=== PATIENT | female | born 1985 | race Caucasian/White ===

== ENCOUNTER 2016-07-27 11:50 | Emergency (ER) | payer MEDICAID ==
[2016-07-27 12:09] VITALS: BP 126/77; RESP 16; TEMP 98; O2SAT 98
--- NOTE | 2016-07-27 12:28 | ED PDOC ---
HPI: Wound Care - HPI Time Seen by Provider: 07/27/16 12:25 Chief Complaint (Nursing): Wound Check Chief Complaint (Provider): wound care History Per: Patient Exam Limitations: no limitations Additional Complaint(s): 30yo F in Ed for eval of left thigh wound sustained 1 week ago via dog bite- with superfical abrasion. pt not given abx. pt state she developed fever last week and now with swelling and pain with redness to injured site. no vomiting no drainage no numbness to LE. Past Medical History Reviewed: Historical Data, Nursing Documentation, Vital Signs Vital Signs: Last Vital Signs Temp 98 F 07/27/16 12:06 Pulse 96 H 07/27/16 12:06 Resp 16 07/27/16 12:06 BP 126/77 07/27/16 12:06 Pulse Ox 98 07/27/16 12:06 - Medical History PMH: No Chronic Diseases - Family History Family History: States: No Known Family Hx - Home Medications Home Medications: Ambulatory Orders Medication Instructions Recorded Ferrous Sulfate [Feosol] 1 tab PO DAILY 07/19/16 Ibuprofen [Motrin] 600 mg PO Q6 #20 tab 07/19/16 Amoxicillin/Clavulanate [Augmentin 1 tab PO BID #14 tab 07/27/16 875 MG-125 MG] - Allergies Allergies/Adverse Reactions: Allergies Allergy/AdvReac Type Severity Reaction Status Date / Time No Known Allergies Allergy Verified 07/27/16 12:22 Review of Systems ROS Statement: Except As Marked, All Systems Reviewed And Found Negative Skin: Positive for: Lesions Physical Exam - Reviewed Nursing Documentation Reviewed: Yes Vital Signs Reviewed: Yes - Physical Exam Appears: Positive for: Well, Non-toxic, No Acute Distress Head Exam: Positive for: ATRAUMATIC, NORMAL INSPECTION, NORMOCEPHALIC Skin: Positive for: Normal Color, Warm, DRY Cardiovascular/Chest: Positive for: Regular Rate, Rhythm Respiratory: Positive for: CNT, Normal Breath Sounds Extremity: Positive for: Normal ROM, Other (left lateral thig mid-1x2 round lesion tender nodule with redness no strekaing. no surronding swelling. ). Negative for: Deformity Neurologic/Psych: Positive for: Alert, Oriented - ECG O2 Sat by Pulse Oximetry: 98 Medical Decision Making Medical Decision Making: pt will require abx, advised to continue warm compress and if worsened with fever or lesion to return to ED for IV abx. pt understands and agrees Disposition - Clinical Impression Clinical Impression: Animal bite wound - Patient ED Disposition Is Patient to be Admitted: No Counseled Patient/Family Regarding: Studies Performed, Diagnosis, Need For Followup, Rx Given - Disposition Disposition: Routine/Home Disposition Time: 12:29 Condition: STABLE Prescriptions: Amoxicillin/Clavulanate [Augmentin 875 MG-125 MG] 1 tab PO BID #14 tab Instructions: Animal Bite (ED)
[2016-07-27 12:34] VITALS: PULSE 89
== END 2016-07-27 12:33 | disposition home or self-care (01) ==
LOC: H.ER 11:50
DX: W54.0XXA Bitten by dog, initial encounter (principal); Y93.9 Activity, unspecified

== ENCOUNTER 2017-06-21 14:28 | Emergency (ER) | payer MEDICAID ==
[2017-06-21 15:02] VITALS: BP 140/91; PULSE 76; RESP 16; TEMP 98.4; O2SAT 100
--- NOTE | 2017-06-21 16:51 | ED PDOC ---
HPI: CCC, URI, Sore Throat Time Seen by Provider: 06/21/17 16:36 Chief Complaint (Nursing): Fever Chief Complaint (Provider): URI symptoms History Per: Patient History/Exam Limitations: no limitations Have you had recent travel within the past 21 days to any of the following countries: [place], [place], [place] or [place]?: No Onset/Duration Of Symptoms: Days (1) Current Symptoms Are (Timing): Still Present Additional History Per: Patient Additional Complaint(s): 31yo female, presents to ED with complaints of flu like symptoms since last night including bodyaches, lightheadedness, sneezing. She reports today she had fever at work and took an Ibuprofen at 1300. 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 She denies any headache, difficulty breathing, rhinorrhea , and sore throat. She denies any recent travels, vomiting, diarrhea. No other complaints. PMD: [facility] Past Medical History Reviewed: Historical Data, Nursing Documentation, Vital Signs Vital Signs: Last Vital Signs Temp 98.4 F 06/21/17 15:00 Pulse 76 06/21/17 15:00 Resp 16 06/21/17 15:00 BP 140/91 H 06/21/17 15:00 Pulse Ox 100 06/21/17 16:52 - Medical History PMH: Hypothyroidism Other PMH: fibroids, ovarian cysts - Family History Family History: States: No Known Family Hx - Social History Current smoker - smoking cessation education provided: No Ex-Smoker (has not smoked in the last 12 months): No Alcohol: None Drugs: Denies - Home Medications Home Medications: Ambulatory Orders Medication Instructions Recorded Ferrous Sulfate [Feosol] 1 tab PO DAILY 07/19/16 Ibuprofen [Motrin] 600 mg PO Q6 #20 tab 07/19/16 Amoxicillin/Clavulanate [Augmentin 1 tab PO BID #14 tab 07/27/16 875 MG-125 MG] Oseltamivir [Tamiflu] 75 mg PO BID #10 cap 06/21/17 - Allergies Allergies/Adverse Reactions: Allergies Allergy/AdvReac Type Severity Reaction Status Date / Time No Known Allergies Allergy Verified 06/21/17 14:59 Review of Systems ROS Statement: Except As Marked, All Systems Reviewed And Found Negative (as per HPI) Constitutional: Positive for: Fever, Chills, Malaise ENT: Positive for: Nose Congestion, Throat Pain Cardiovascular: Positive for: Light Headedness Respiratory: Positive for: Cough. Negative for: Shortness of Breath Gastrointestinal: Negative for: Vomiting, Diarrhea Neurological: Negative for: Headache Physical Exam - Reviewed Nursing Documentation Reviewed: Yes Vital Signs Reviewed: Yes - ECG O2 Sat by Pulse Oximetry: 100 (RA) Pulse Ox Interpretation: Normal Medical Decision Making Medical Decision Making: Impression: Influenza like illness Plan: -- Patient to be discharged home with Tamiflu and instructed to rest, increase fluid intake and quarantine self. All questions answered and patient is agreeable with plan. Scribe Attestation: Documented by Deann Humphreys acting as a scribe for Sobeida Guthrie MD. Provider Attestation: All medical record entries made by the Scribe were at my direction and personally dictated by me. I have reviewed the chart and agree that the record accurately reflects my personal performance of the history, physical exam, medical decision making, and the department course for this patient. I have also personally directed, reviewed, and agree with the discharge instructions and disposition. Disposition - Clinical Impression Clinical Impression: Influenza-like illness Counseled Patient/Family Regarding: Diagnosis, Need For Followup, Rx Given - Disposition Referrals: [facility] [place] [Outside] - 06/24/17 (FOLLOW UP IN 2-3 DAYS FOR REEVALUATION) Disposition: Routine/Home Disposition Time: 16:50 Condition: GOOD Prescriptions: Oseltamivir [Tamiflu] 75 mg PO BID #10 cap Instructions: Influenza (ED) Forms: [facility] ED School/Work Excuse
== END 2017-06-21 17:06 | disposition home or self-care (01) ==
LOC: H.ER 14:28
DX: R50.9 Fever, unspecified (principal); E03.9 Hypothyroidism, unspecified